=== PATIENT | male | born 1980 | race Caucasian/White ===

== ENCOUNTER 2025-03-17 13:37 | Emergency (ER) | payer BC ==
[~2025-03-17] VITALS: Ht 188 cm; Wt 76.7 kg
[2025-03-17 13:48] VITALS: TEMP 98.1
[2025-03-17] MEDS ORDERED: ONDANSETRON HCL/PF 4 MG/2 ML VIAL ONE (14:07)
[2025-03-17] MEDS ORDERED: KETOROLAC TROMETHAMINE 15 MG/ML VIAL ONE (14:07)
[2025-03-17] MEDS ORDERED: FAMOTIDINE/PF INJ 20 MG/2 ML VIAL IV ONE (14:07)
[2025-03-17] MEDS: FAMOTIDINE/PF INJ 20 MG/2 ML VIAL IV ONE (14:25)
[2025-03-17] MEDS: ONDANSETRON HCL/PF 4 MG/2 ML VIAL IVP ONE (14:25)
[2025-03-17] MEDS: KETOROLAC TROMETHAMINE 15 MG/ML VIAL IV ONE (14:25)
[2025-03-17] MEDS: IV NS 0.9% 1,000 ML BAG IV ONE (14:30)
[2025-03-17 14:40] LABS: PLATELET COUNT (AUTO) 357 K/uL (150-450); RED BLOOD CELL COUNT(AUTO) 4.66 MIL/uL (4.5-6.0); RED CELL DISTRIBUTION WIDTH 14.8 % (11.5-15.0); WHITE BLOOD COUNT (AUTO) 12.7 K/uL (4.3-11.0)
[2025-03-17 14:55] LABS: CALCIUM, SERUM 8.8 mg/dL (8.5-10.1); CREATININE 0.6 mg/dL (0.6-1.3); SODIUM SERUM 135 mmol/L (136-145); UREA NITROGEN, BLOOD 21 mg/dL (7-18)
[2025-03-17 15:00] LABS: ASPARTATE AMINOTRANSFERASE 42 U/L (15-37); TOTAL PROTEIN, SERUM 8.0 g/dL (6.4-8.2)
[2025-03-17] MEDS ORDERED: POLY119P PO (15:26)
[2025-03-17] MEDS ORDERED: IBUP-1490 PO (15:26)
[2025-03-17] MEDS ORDERED: FAMO20TA8 PO (15:26)
[2025-03-17 15:51] VITALS: BP 129/77; O2SAT 98
== END 2025-03-17 15:51 | disposition home or self-care (01) ==
LOC: ER 14:22
DX: R11.2 Nausea with vomiting, unspecified (principal); K59.00 Constipation, unspecified; Z87.19 Personal history of other diseases of the digestive system; Z79.899 Other long term (current) drug therapy
CPT/HCPCS: 99285; 96374; 96375; 71045; 96361; 93005; 85025; 80048; 83690; 80076; 36415; 84484; J1885; J1308; J2405; J7030